=== PATIENT | female | born 1930 | race Caucasian/White ===

== ENCOUNTER 2016-12-06 15:12 | Inpatient (IN) | payer MEDICARE, BC ==
--- NOTE | 2016-12-06 15:28 | ED ---
General Adult HPI - General Chief complaint: Weakness Stated complaint: Weakness Time Seen by Provider: 12/06/16 15:12 Source: EMS, RN notes reviewed Mode of arrival: EMS Limitations: no limitations - History of Present Illness Initial comments: This is an 85-year-old female presents to the emergency department because of generalized weakness. Patient was trying to get out of bed today at about 2:00 in the morning and she slowly fell to the ground she did not injure herself and family help. But however they got her up today and she was extremely weak and was unable to hold herself up. Family wanted her evaluated because below her pannus is a area of redness extremely bad odor and breakdown of skin which they think it is infected. Patient has not had any fever chills patient does state that there is very tender. Patient denies any actual internal abdominal pain. Patient denies nausea vomiting diarrhea. Patient denies shortness of breath. Patient denies chest pain or palpitations. Patient denies headache patient denies numbness weakness. Patient denies any injury in the fall. Patient states she just his overall weak. Per EMS patient was hypotensive initially but is since resolved to a normal blood pressure - Related Data Home Medications Medication Instructions Recorded Confirmed Allopurinol [Zyloprim] 100 mg PO DAILY 12/06/16 12/06/16 Aspirin EC [Ecotrin Low Dose] 81 mg PO HS 12/06/16 12/06/16 Atorvastatin [Lipitor] 5 mg PO HS 12/06/16 12/06/16 Lisinopril [Zestril] 5 mg PO DAILY 12/06/16 12/06/16 Multivitamins, Thera [Multivitamin] 1 tab PO DAILY 12/06/16 12/06/16 Sildenafil [Revatio] 20 mg PO BID 12/06/16 12/06/16 Spironolactone [Aldactone] 37.5 mg PO DAILY 12/06/16 12/06/16 Torsemide [Demadex] 40 mg PO DAILY 12/06/16 12/06/16 fentaNYL 25MCG/HR PATCH [Duragesic 1 patch TRANSDERM Q72H 12/06/16 12/06/16 25MCG/HR] oxyCODONE-APAP 10-325MG [Percocet 1 tab PO TID PRN 12/06/16 12/06/16 10-325 mg] Allergies Allergy/AdvReac Type Severity Reaction Status Date / Time No Known Allergies Allergy Verified 12/06/16 15:22 Review of Systems ROS Statement: Those systems with pertinent positive or pertinent negative responses have been documented in the HPI. ROS Other: All systems not noted in ROS Statement are negative. Past Medical History Past Medical History: Coronary Artery Disease (CAD), Hyperlipidemia, Hypertension History of Any Multi-Drug Resistant Organisms: None Reported Past Surgical History: Unable to Obtain Past Psychological History: No Psychological Hx Reported Smoking Status: Never smoker Past Alcohol Use History: None Reported Past Drug Use History: None Reported General Exam - General Exam Comments Initial Comments: GENERAL: Patient is well-developed and well-nourished. Patient is nontoxic and well- hydrated and is in no acute distress. ENT: Neck is soft and supple. No significant lymphadenopathy is noted. Oropharynx is clear. Moist mucous membranes. Neck has full range of motion without eliciting any pain. EYES: The sclera were anicteric and conjunctiva were pink and moist. Extraocular movements were intact and pupils were equal round and reactive to light. Eyelids were unremarkable. PULMONARY: Unlabored respirations. Good breath sounds bilaterally. No audible rales rhonchi or wheezing was noted. CARDIOVASCULAR: There is a regular rate and rhythm without any murmurs gallops or rubs. ABDOMEN: Soft and nontender with normal bowel sounds. No palpable organomegaly was noted. There is no palpable pulsatile mass. Patient has a large pannus and underneath the pannus is erythematous with some skin breakdown and very malodorous. There appears to be early cellulitis beneath the pannus Skin Skin is clear with no lesions or rashes and otherwise unremarkable. NEUROLOGIC: Patient is alert and oriented x3. Cranial nerves II through XII are grossly intact. Normal speech, volume and content. Symmetrical smile. MUSCULOSKELETAL: No lower extremity swelling or edema. No calf tenderness. LYMPHATICS: No significant lymphadenopathy is noted PSYCHIATRIC: Normal psychiatric evaluation. Limitations: no limitations Course Vital Signs 12/06/16 12/06/16 12/06/16 15:13 15:37 15:50 Temperature 97.1 F L Pulse Rate 73 122 H 120 H Respiratory 20 Rate Blood Pressure 94/50 76/46 75/39 O2 Sat by Pulse 96 97 98 Oximetry 12/06/16 12/06/16 12/06/16 16:41 17:07 17:33 Temperature 96.8 F L 96.8 F L Pulse Rate 120 H 120 H 117 H Respiratory 18 18 Rate Blood Pressure 95/44 159/75 81/46 O2 Sat by Pulse 97 96 Oximetry 12/06/16 18:06 Temperature Pulse Rate 110 H Respiratory Rate Blood Pressure 86/46 O2 Sat by Pulse Oximetry Procedures - Central Line Placement Left Femoral Consent Obtained: verbal consent Time Out Performed: Yes Patient Placed on Monitor/Pulse Ox: Yes Prep: mask, gown, gloves Central Line Prep: Chlorhexidine scrub Local Anesthesia Used: Lidocaine 1% Ultrasound Used for Placement: No Central Line Lumen Inserted: triple Bloods Obtained for Lab: No Central Line Position: good blood return Dressing Applied: Tegaderm Patient Tolerated Procedure: well Complications: none Medical Decision Making - Medical Decision Making EKG shows sinus tachycardia at 122 beats a minute IN interval 258 QRS is 94 QT interval 316 QTC is 450. EKG shows no ST segment elevation. Chest x-ray is a limited exam which is very rotated. Patient's lactic acid was elevated and her blood pressure was low. I started the patient on Levaquin and I also ordered 3 L of fluid for the patient. - Lab Data Result diagrams: 12/06/16 15:30 12/06/16 15:30 Lab Results 12/06/16 12/06/16 12/06/16 Range/Units 15:30 15:30 15:30 WBC 13.7 H (3.8-10.6) k/uL RBC 3.71 L (3.80-5.40) m/uL Hgb 13.5 (11.4-16.0) gm/dL Hct 42.6 (34.0-46.0) % MCV 115.0 H (80.0-100.0) fL MCH 36.3 H (25.0-35.0) pg MCHC 31.5 (31.0-37.0) g/dL RDW 15.8 H (11.5-15.5) % Plt Count 113 L (150-450) k/uL Neutrophils % 88 % Lymphocytes % 6 % Monocytes % 4 % Eosinophils % 0 % Basophils % 0 % Neutrophils # 12.0 H (1.3-7.7) k/uL Lymphocytes # 0.9 L (1.0-4.8) k/uL Monocytes # 0.6 (0-1.0) k/uL Eosinophils # 0.0 (0-0.7) k/uL Basophils # 0.0 (0-0.2) k/uL Manual Slide Review Performed Poikilocytosis (manual Present Macrocytosis Marked PT (9.0-12.0) sec INR (<1.1) APTT (22.0-30.0) sec Sodium 140 (137-145) mmol/L Potassium 5.9 H (3.5-5.1) mmol/L Chloride 106 (98-107) mmol/L Carbon Dioxide 20 L (22-30) mmol/L Anion Gap 14 mmol/L BUN 164 H* (7-17) mg/dL Creatinine 4.10 H (0.52-1.04) mg/dL Est GFR (MDRD) Af Amer 13 (>60 ml/min/1.73 sqM) Est GFR (MDRD) Non-Af 10 (>60 ml/min/1.73 sqM) Glucose 76 (74-99) mg/dL Plasma Lactic Acid Tanvir 2.9 H* (0.7-2.0) mmol/L Calcium 10.7 H (8.4-10.2) mg/dL Total Bilirubin 1.8 H (0.2-1.3) mg/dL AST 37 H (14-36) U/L ALT 42 (9-52) U/L Alkaline Phosphatase 189 H (38-126) U/L Total Protein 5.6 L (6.3-8.2) g/dL Albumin 2.4 L (3.5-5.0) g/dL Cortisol ug/dL Urine Color Urine Appearance (Clear) Urine pH (5.0-8.0) Ur Specific [place] (1.001-1.035) Urine Protein (Negative) Urine Glucose (UA) (Negative) Urine Ketones (Negative) Urine Blood (Negative) Urine Nitrate (Negative) Urine Bilirubin (Negative) Urine Urobilinogen (<2.0) mg/dL Ur Leukocyte Esterase (Negative) Urine WBC (0-5) /hpf Urine WBC Clumps (None) /hpf Urine Bacteria (None) /hpf 12/06/16 12/06/16 12/06/16 Range/Units 15:30 15:30 16:00 WBC (3.8-10.6) k/uL RBC (3.80-5.40) m/uL Hgb (11.4-16.0) gm/dL Hct (34.0-46.0) % MCV (80.0-100.0) fL MCH (25.0-35.0) pg MCHC (31.0-37.0) g/dL RDW (11.5-15.5) % Plt Count (150-450) k/uL Neutrophils % % Lymphocytes % % Monocytes % % Eosinophils % % Basophils % % Neutrophils # (1.3-7.7) k/uL Lymphocytes # (1.0-4.8) k/uL Monocytes # (0-1.0) k/uL Eosinophils # (0-0.7) k/uL Basophils # (0-0.2) k/uL Manual Slide Review Poikilocytosis (manual Macrocytosis PT 13.2 H (9.0-12.0) sec INR 1.3 (<1.1) APTT 24.2 (22.0-30.0) sec Sodium (137-145) mmol/L Potassium (3.5-5.1) mmol/L Chloride (98-107) mmol/L Carbon Dioxide (22-30) mmol/L Anion Gap mmol/L BUN (7-17) mg/dL Creatinine (0.52-1.04) mg/dL Est GFR (MDRD) Af Amer (>60 ml/min/1.73 sqM) Est GFR (MDRD) Non-Af (>60 ml/min/1.73 sqM) Glucose (74-99) mg/dL Plasma Lactic Acid Tanvir (0.7-2.0) mmol/L Calcium (8.4-10.2) mg/dL Total Bilirubin (0.2-1.3) mg/dL AST (14-36) U/L ALT (9-52) U/L Alkaline Phosphatase (38-126) U/L Total Protein (6.3-8.2) g/dL Albumin (3.5-5.0) g/dL Cortisol 46 ug/dL Urine Color Light Red Urine Appearance Turbid H (Clear) Urine pH 5.5 (5.0-8.0) Ur Specific [place] 1.017 (1.001-1.035) Urine Protein 2+ H (Negative) Urine Glucose (UA) Negative (Negative) Urine Ketones Negative (Negative) Urine Blood Small H (Negative) Urine Nitrate Negative (Negative) Urine Bilirubin Negative (Negative) Urine Urobilinogen <2.0 (<2.0) mg/dL Ur Leukocyte Esterase Large H (Negative) Urine WBC >182 H (0-5) /hpf Urine WBC Clumps Many H (None) /hpf Urine Bacteria Many H (None) /hpf Critical Care Time Critical Care Time: Yes Total Critical Care Time: 40 Disposition Clinical Impression: UTI (urinary tract infection), Sepsis, Intertrigo, Acute renal failure, Hyperkalemia Disposition: ADMITTED IP TO THIS [facility] Time of Disposition: 16:53
[2016-12-06] MEDS ORDERED: ONDANSETRON 4 MG/2 ML VIAL IVP STA (15:35)
[2016-12-06] MEDS ORDERED: SODIUM CHLORIDE 0.9% 1,000 ML IV ONE (15:38)
[2016-12-06 15:40] LABS: Basophils % (A) 0 %; CH 36.2; CHCM 31.7; Eosinophils % (A) 0 %; HCT 42.6 % (34.0-46.0); HDW 2.37; HGB 13.5 gm/dL (11.4-16.0); Luc # (Auto) 0.24; Luc % (Auto) 2; Lymphocytes # (A) 0.9 k/uL (1.0-4.8); Lymphocytes % (A) 6 %; MCH 36.3 pg (25.0-35.0); MCHC 31.5 g/dL (31.0-37.0); Macrocytosis Marked; Mean Platelet Volume 9.1; Monocytes # (A) 0.6 k/uL (0-1.0); Monocytes % (A) 4 %; Neutrophils % (A) 88 %; RBC 3.71 m/uL (3.80-5.40); RDW 15.8 % (11.5-15.5); WBC 13.7 k/uL (3.8-10.6); WBC (Perox) 13.96
[2016-12-06] MEDS: HYDROmorphone 1 MG/ML 1 ML SYRINGE IVP STA (15:43)
[2016-12-06 15:46] LABS: Calcium 10.7 mg/dL (8.4-10.2); Potassium 5.9 mmol/L (3.5-5.1); Total Bilirubin 1.8 mg/dL (0.2-1.3); Total Protein 5.6 g/dL (6.3-8.2)
[2016-12-06 15:54] LABS: Manual Review Performed
[2016-12-06] MEDS ORDERED: LEVOFLOXACIN 750MG-D5W PMX 750 MG in DEXTROSE/WATER 1 150ML.BAG IVPB STA (15:57)
[2016-12-06] MEDS ORDERED: LEVOFLOXACIN 750MG-D5W PMX 750 MG in DEXTROSE/WATER 1 150ML.BAG IVPB SCH (16:00)
[2016-12-06 16:26] LABS: Appearance,Urine Turbid (Clear); Bacteria,Urine Many /hpf; Bilirubin,Urine Negative (Negative); Glucose,Urine (UA) Negative (Negative); Ketones,Urine Negative (Negative); Leukocyte Esterase,Urine Large (Negative); Nitrite,Urine Negative (Negative); PH, Urine 5.5 (5.0-8.0); Particle Count 129329; Protein,Urine 2+ (Negative); UA Billing (MACRO vs. MICRO) MICRO; Urobilinogen,Urine <2.0 mg/dL (<2.0); WBC,Urine >182 /hpf (0-5)
[2016-12-06] MEDS ORDERED: SODIUM CHLORIDE 0.9% 2,000 ML IV ONE (16:33)
--- NOTE | 2016-12-06 16:44 | XR ---
EXAMINATION TYPE: XR chest 2V DATE OF EXAM: 12/06/2016 4:37 PM COMPARISON: 01/19/2012 HISTORY: 85-year-old female difficulty breathing TECHNIQUE: AP and lateral views FINDINGS: Limited portable view with marked rightward rotation and kyphotic positioning. There appears to be ca rdiomegaly and diffuse interstitial prominence. No significant pleural effusion seen. IMPRESSION: Markedly limited, rotated exam. There is cardiomegaly. Correlate for possible mild CHF.
[2016-12-06 16:52] LABS: Specific Gravity,Urine 1.017 (1.001-1.035)
[2016-12-06] MEDS ORDERED: SODIUM POLYSTYRENE SULFONATE 15 GM/60 ML BOTTLE PO STA (17:05)
[2016-12-06] MEDS ORDERED: PIPERACILLIN-TAZOBACTAM 3.375 GM in DEXTROSE/WATER 1 50ML.BAG IVPB STA (17:37)
[2016-12-06 17:39] LABS: INR 1.3 (<1.1); Partial Thromboplastin Time 24.2 sec (22.0-30.0); Prothrombin Time 13.2 sec (9.0-12.0)
[2016-12-06] MEDS: NOREPINEPHRINE 16 MG in SODIUM CHLORIDE 0.9% 250 ML IV SCH (18:36)
[2016-12-06 18:59] LABS: Glucose,Whole Blood 73 mg/dL (75-99)
[2016-12-06] MEDS: SODIUM CHLORIDE 0.9% 1,000 ML IV SCH (22:17)
[2016-12-06 23:04] LABS: Creatine Kinase MB 7.4 ng/mL (0.0-2.4); Troponin I 0.225 ng/mL (0.000-0.034)
[2016-12-07] MEDS ORDERED: PIPERACILLIN-TAZOBACTAM 3.375 GM in DEXTROSE/WATER 1 50ML.BAG IVPB SCH (01:00)
[2016-12-07] MEDS ORDERED: HEPARIN SODIUM,PORCINE/D5W PMX 25,000 UNIT in DEXTROSE/WATER 1 500ML.BAG IV SCH (02:00)
[2016-12-07] MEDS ORDERED: HEPARIN SODIUM,PORCINE 5,000 UNIT/ML 1 ML VIAL IV PRN (02:00)
[2016-12-07] MEDS ORDERED: HYDROCORTISONE SUCCINATE 100 MG/2 ML VIAL IV STA ×2 (02:03→10:39)
[2016-12-07] MEDS: PIPERACILLIN-TAZOBACTAM 3.375 GM in DEXTROSE/WATER 1 50ML.BAG IVPB SCH ×2 (02:16→11:48)
[2016-12-07 02:23] LABS: Basophils % (A) 0 %; CHCM 31.2; Eosinophils % (A) 0 %; HDW 2.37; HGB 12.8 gm/dL (11.4-16.0); Hypochromasia Slight; Luc # (Auto) 0.29; Luc % (Auto) 2; Lymphocytes # (A) 0.7 k/uL (1.0-4.8); Lymphocytes % (A) 4 %; MCH 36.1 pg (25.0-35.0); MCHC 31.1 g/dL (31.0-37.0); MCV 116.1 fL (80.0-100.0); Macrocytosis Marked; Mean Platelet Volume 9.1; Monocytes % (A) 6 %; Neutrophils # (A) 15.9 k/uL (1.3-7.7); Neutrophils % (A) 89 %; RBC 3.53 m/uL (3.80-5.40); RDW 15.8 % (11.5-15.5); WBC 17.9 k/uL (3.8-10.6); WBC (Perox) 18.06
[2016-12-07 02:29] LABS: ABG HCO3 15 mmol/L (21-25); ABG Oxygen Saturation 98.1 % (94-97); ABG PCO2 33 mmHg (35-45); ABG PH 7.29 (7.35-7.45); ABG PO2 116 mmHg (83-108); ABG TCO2 16 mmol/L (19-24)
[2016-12-07 02:31] LABS: Calcium 9.8 mg/dL (8.4-10.2); INR 1.4 (<1.1); Partial Thromboplastin Time 26.6 sec (22.0-30.0); Polychromasia Present; Potassium 5.4 mmol/L (3.5-5.1); Prothrombin Time 13.5 sec (9.0-12.0); Total Bilirubin 1.6 mg/dL (0.2-1.3); Total Protein 5.1 g/dL (6.3-8.2)
[2016-12-07 02:32] LABS: Manual Review Performed
[2016-12-07] MEDS: SODIUM CHLORIDE 0.9% 99 ML with VASOPRESSIN 20 UNIT IV SCH ×4 (02:51→10:15)
[2016-12-07] MEDS ORDERED: NALOXONE 0.4 MG/ML 1 ML VIAL IV PRN (03:17)
[2016-12-07 05:33] LABS: Basophils % (A) 0 %; CH 35.8; Eosinophils % (A) 0 %; HCT 39.2 % (34.0-46.0); HDW 2.48; HGB 12.2 gm/dL (11.4-16.0); Hypochromasia Slight; Luc # (Auto) 0.11; Luc % (Auto) 1; Lymphocytes # (A) 0.4 k/uL (1.0-4.8); Lymphocytes % (A) 3 %; MCH 36.2 pg (25.0-35.0); MCHC 31.1 g/dL (31.0-37.0); MCV 116.3 fL (80.0-100.0); Macrocytosis Marked; Mean Platelet Volume 9.2; Monocytes # (A) 0.6 k/uL (0-1.0); Monocytes % (A) 4 %; Neutrophils # (A) 14.4 k/uL (1.3-7.7); Neutrophils % (A) 93 %; RBC 3.37 m/uL (3.80-5.40); RDW 15.9 % (11.5-15.5); WBC 15.6 k/uL (3.8-10.6); WBC (Perox) 15.29
[2016-12-07 05:49] LABS: Calcium 9.6 mg/dL (8.4-10.2); Magnesium 1.4 mg/dL (1.6-2.3); Phosphorous 6.2 mg/dL (2.5-4.5); Potassium 5.5 mmol/L (3.5-5.1)
[2016-12-07 06:12] LABS: Creatine Kinase MB 7.6 ng/mL (0.0-2.4)
[2016-12-07 06:13] LABS: Troponin I 0.475 ng/mL (0.000-0.034)
[2016-12-07] MEDS ORDERED: Magnesium Replacement Protocol 1 EACH MISC MISCELLANE PRN (06:15)
[2016-12-07] MEDS: HYDROmorphone 1 MG/ML 1 ML SYRINGE IVP STA (06:16)
[2016-12-07] MEDS: MAGNESIUM SULFATE-D5W PMX 1 GM in DEXTROSE/WATER 1 100ML.BAG IVPB SCH ×3 (06:56→10:14)
[2016-12-07] MEDS: NOREPINEPHRINE 16 MG in SODIUM CHLORIDE 0.9% 250 ML IV SCH ×3 (08:14→18:59)
[2016-12-07] MEDS: SODIUM CHLORIDE 0.9% 1,000 ML IV SCH (08:18)
--- NOTE | 2016-12-07 08:20 | XR ---
EXAMINATION TYPE: XR chest 1V DATE OF EXAM: 12/07/2016 6:48 AM COMPARISON: 12/06/2016 HISTORY: Shortness of breath TECHNIQUE: Single frontal view of the chest is obtained. FINDINGS: Heart is enlarged there is a diffuse interstitial pattern. Aorta is prominent in size. Dif fuse osteopenia and arthropathy of the shoulders noted. No obvious consolidation. IMPRESSION: 1. Correlate for mild venous congestion 2. Cardiomegaly 3. Possible aortic aneurysm
[2016-12-07] MEDS ORDERED: ALLOPURINOL 100 MG TAB PO SCH (09:00)
[2016-12-07] MEDS ORDERED: PANTOPRAZOLE 40 MG/10 ML VIAL IV SCH (09:00)
--- NOTE | 2016-12-07 10:32 | ECHOF ---
Referral Reason:CHF MEASUREMENTS -------- HEIGHT: 154.9 cm WEIGHT: 102.1 kg BP: 76/34 RVIDd: 4.7 cm (< 3.3) IVSd: 1.3 cm (0.6 - 1.1) LVIDd: 3.2 cm (3.9 - 5.3) LVPWd: 1.5 cm (0.6 - 1.1) IVSs: 2.3 cm LVIDs: 1.6 cm LVPWs: 1.7 cm Ao Diam: 3.0 cm (2.0 - 3.7) AV Cusp: 2.2 cm (1.5 - 2.6) LA Diam: 3.7 cm (2.7 - 3.8) MV E Augie: 1.05 m/s MV DecT: 70 ms MV A Augie: 0.74 m/s MV E/A Ratio: 1.42 RAP: 5.00 mmHg RVSP: 98.32 mmHg FINDINGS -------- Resting tachycardia (HR>100bpm). This was a technically adequate study. There is moderate concentric left ventricular hypertrophy. Overall left ventricular systolic function is normal with, an EF between 55 - 60 %. There is paradoxical/dysynergic septal motion consistent with right ventricular volume overload and/or elevated right ventricular end-diastolic pressure. The right ventricle is severely enlarged. The left atrium is normal in size. The right atrium is normal in size. Aortic valve is trileaflet and is mildly thickened. The mitral valve leaflets are mildly thickened. Mild mitral annular calcification present. Mild mitral regurgitation is present. Moderate tricuspid regurgitation present. There is severe pulmonary hypertension. The right ventricular systolic pressure, as measured by Doppler, is 98.32mmHg. Pulmonic valve appears structurally normal. The aortic root size is normal. The pericardium is normal. CONCLUSIONS -------- 1. Resting tachycardia (HR>100bpm). 2. The mitral valve leaflets are mildly thickened. 3. Mild mitral annular calcification present. 4. Mild mitral regurgitation is present. 5. Moderate tricuspid regurgitation present. 6. There is severe pulmonary hypertension. 7. The right ventricular systolic pressure, as measured by Doppler, is 98.32mmHg. 8. Pulmonic valve appears structurally normal. 9. The aortic root size is normal. 10. The pericardium is normal. 11. This was a technically adequate study. 12. There is moderate concentric left ventricular hypertrophy. 13. Overall left ventricular systolic function is normal with, an EF between 55 - 60 %. 14. There is paradoxical/dysynergic septal motion consistent with right ventricular volume overload and/or elevated right ventricular end-diastolic pressure. 15. The right ventricle is severely enlarged. 16. The left atrium is normal in size. 17. The right atrium is normal in size. 18. Aortic valve is trileaflet and is mildly thickened. [employer]ACHINE ADJUSTER: Constance Mendez RDCS
[2016-12-07] MEDS ORDERED: IV VANCOMYCIN PER PHARMACY 1 EACH MISC MISCELLANE PRN (10:42)
[2016-12-07] MEDS ORDERED: VANCOMYCIN 1,750 MG in SODIUM CHLORIDE 0.9% 250 ML IVPB ONE (11:30)
[2016-12-07] MEDS: HYDROmorphone 1 MG/ML 1 ML SYRINGE IVP PRN ×3 (11:31→20:30)
--- NOTE | 2016-12-07 11:52 | CONS ---
DATE OF CONSULTATION: 12/07/2016 REASON FOR CONSULT: Renal failure. HISTORY OF PRESENT ILLNESS: Patient is an 85-year-old white female who has a history of hypertension, severe pulmonary hypertension, and coronary artery disease, being followed by Dr. Healy, who is her mechanical adjuster out of town. She was admitted to the hospital with complaints of weakness, not feeling well, and inability to get out of bed. Patient denied any fever. No nausea or vomiting. She denies any prior history of kidney diseases. She has been hypotensive since admission. She was maintained on JENNIFER inhibitors prior to admission. There is no history of use of nonsteroidal anti-inflammatory agents. Currently patient is maintained on Levophed at about 40 mcg, she is also on IV fluids. She has had 4 L of fluid thus far. Urine output was initially low and it has picked up now to about 50 to 40 mL/h. Serum creatinine 3.2 mg/dL. On initial admission it was at 4.1 mg/dL. Source of sepsis is possibly urine versus cellulitis on the abdominal wall. Patient is maintained on Zosyn and Levaquin. ID consult is currently pending. PAST MEDICAL HISTORY: Hypertension, hyperlipidemia, coronary artery disease, severe pulmonary hypertension. PAST SURGICAL HISTORY: Not noted. Medications at home prior to admission included Zyloprim, Lipitor, aspirin, Zestril, multivitamins, Aldactone, Revatio, Demadex, Percocet. ALLERGIES: None. REVIEW OF SYSTEMS: As per HPI. Other systems negative. On examination, patient is comfortable. She is complaining of pain all over. She is not in any acute distress. Blood pressure is 100/51, heart rate 109 per minute. She is afebrile. Examination of the heart, S1 and S2. Examination of lungs, bilateral breath sounds are heard. Decreased breath sounds in bases. Abdomen is soft. There is tenderness noted, particularly where there is cellulitis in the lower abdomen. Examination of lower extremities shows chronic skin changes, edema 1+ bilaterally. [employer]ER exam is grossly intact. Labs show sodium of 143, potassium 5.5, chloride 116, CO2 is 14. BUN 133, serum creatinine 3.25, hemoglobin at 12.2 g/dL, UA shows WBCs more than 182, leukocyte esterase large, 2+ protein, small blood. ASSESSMENT: 1. Acute kidney injury, acute tubular necrosis, secondary to sepsis, hypotension, hypoperfusion, currently nonoliguric with some improvement in renal function compared to yesterday. 2. Non-gap metabolic acidosis secondary to renal failure. Will start IV bicarb, since the acidosis is worse. This will also help with the hyperkalemia. 3. Sepsis secondary to urinary tract infection versus cellulitis in the abdominal wall. 4. History of severe pulmonary hypertension. 5. History of coronary artery disease. PLAN: Continue aggressive IV fluids. Start IV bicarb. Continue to avoid nephrotoxic agents. Family is considering transfer to [facility] where her primary mechanical adjuster works out of.
[2016-12-07] MEDS ORDERED: DEXTROSE 5% IN WATER 1,000 ML with SODIUM BICARB (1 MEQ/ML) 150 ML IV SCH (12:00)
--- NOTE | 2016-12-07 13:46 | P.HPIM ---
History of Present Illness H&P Date: 12/07/16 Chief Complaint: Generalized weakness This is a 85-year-old female with past medical history noted below significant for severe pulmonary hypertension/cor pulmonale who presented to the emergency room brought in by her family with a chief complaint of generalized weakness and not feeling well. Apparently patient has been doing fairly well up until the last few days when her family members noted worsening redness in between her abdominal folds. Patient is obese that she is usually functional. She is able to get up and take care of her activities of daily living. Yesterday, patient was noted to be more lethargic and tired. She was brought into the emergency room and was noted to be severely septic with hypotension. Patient was treated aggressively with IV fluid hydration, vasopressors, and broad spectrum antibiotic. She was admitted to the intensive care unit. She is currently on 2 different pressors. She was seen and evaluated by the cadmium plater earlier. Patient is awake and alert. She is complaining of some abdominal pain. She denies shortness of breath. Review of Systems Review of system: 14 points review of systems were obtained and were negative except to what were mentioned in the HPI. Past Medical History Past Medical History: Coronary Artery Disease (CAD), Hyperlipidemia, Hypertension History of Any Multi-Drug Resistant Organisms: None Reported Past Surgical History: Unable to Obtain Past Psychological History: No Psychological Hx Reported Smoking Status: Never smoker Past Alcohol Use History: None Reported Past Drug Use History: None Reported Medications and Allergies Home Medications Medication Instructions Recorded Confirmed Type Allopurinol [Zyloprim] 100 mg PO DAILY 12/06/16 12/06/16 History Aspirin EC [Ecotrin Low Dose] 81 mg PO HS 12/06/16 12/06/16 History Atorvastatin [Lipitor] 5 mg PO HS 12/06/16 12/06/16 History Lisinopril [Zestril] 5 mg PO DAILY 12/06/16 12/06/16 History Multivitamins, Thera [Multivitamin] 1 tab PO DAILY 12/06/16 12/06/16 History Sildenafil [Revatio] 20 mg PO BID 12/06/16 12/06/16 History Spironolactone [Aldactone] 37.5 mg PO DAILY 12/06/16 12/06/16 History Torsemide [Demadex] 40 mg PO DAILY 12/06/16 12/06/16 History fentaNYL 25MCG/HR PATCH [Duragesic 1 patch TRANSDERM Q72H 12/06/16 12/06/16 History 25MCG/HR] oxyCODONE-APAP 10-325MG [Percocet 1 tab PO TID PRN 12/06/16 12/06/16 History 10-325 mg] Allergies Allergy/AdvReac Type Severity Reaction Status Date / Time No Known Allergies Allergy Verified 12/06/16 15:22 Physical Exam Vitals: Vital Signs Temp Pulse Resp BP Pulse Ox 12/07/16 13:00 102 H 15 98 12/07/16 12:00 98.1 F 91 16 98 12/07/16 11:00 95 24 97 12/07/16 10:00 104 H 31 H 100/48 97 12/07/16 09:00 109 H 15 100/51 96 12/07/16 08:00 97.5 F L 123 H 24 94/51 98 12/07/16 07:00 118 H 22 101/43 98 12/07/16 06:00 112 H 22 76/33 94 L 12/07/16 05:00 109 H 14 86/44 96 12/07/16 04:00 97.4 F L 126 H 17 97 12/07/16 03:00 125 H 18 99 12/07/16 02:00 139 H 18 98 12/07/16 01:00 136 H 12 98 12/07/16 00:00 97.3 F L 137 H 18 94/48 97 12/06/16 23:29 124 H 17 98 12/06/16 23:00 131 H 19 81/48 97 12/06/16 22:00 129 H 15 97/46 99 12/06/16 21:00 120 H 17 82/38 99 12/06/16 20:00 97.1 F L 120 H 18 67/52 97 12/06/16 19:20 127 H 14 73/51 98 12/06/16 19:10 97.7 F 120 H 14 84/64 99 12/06/16 18:23 134 H 85/40 12/06/16 18:06 110 H 86/46 12/06/16 17:33 96.8 F L 117 H 18 81/46 96 12/06/16 17:07 96.8 F L 120 H 18 159/75 97 Intake and Output 12/06/16 12/07/16 12/07/16 22:59 06:59 14:59 Intake Total 719.516 7386.533 1233.477 Output Total 325 620 445 Balance 17.113 493.533 788.477 Intake: IV 300 800 360 Sodium Chloride 0.9% 1, 300 800 360 000 ml @ 100 mls/hr IV . Q10H [facility] Rx#:[id number] Intake, IV Titration 42.113 313.533 873.477 Amount Heparin Sodium,Porcine/ 89.646 170.802 D5w Pmx 25,000 unit In Dextrose/Water 1 500ml. bag @ 9.8 UNITS/KG/HR 20. 07 mls/hr IV .Q24H [facility] Rx #:[id number] Magnesium Sulfate-D5w Pmx 200 1 gm In Dextrose/Water 1 100ml.bag @ 100 mls/hr IVPB Q1H [facility] Rx#: [id number] Norepinephrine 16 mg In 42.113 223.887 252.675 Sodium Chloride 0.9% 250 ml @ Titrate IV .Q0M [facility] Rx#:[id number] Vancomycin 1,750 mg In 250 Sodium Chloride 0.9% 250 ml @ 125 mls/hr IVPB ONCE ONE Rx#:[id number] Output: Urine 325 620 445 Other: Voiding Method Indwelling Catheter Indwelling Catheter Indwelling Catheter Weight 102.4 kg 104 kg ABP, PAP, CO, CI - Last 8 Hours Arterial Blood Pressure 83/38 Arterial Blood Pressure 79/37 Arterial Blood Pressure 75/33 Arterial Blood Pressure 76/38 Arterial Blood Pressure 75/39 Arterial Blood Pressure 76/39 Arterial Blood Pressure 79/37 Arterial Blood Pressure 74/33 General: The patient is awake and alert Eye: extra-ocular movements are intact; there is normal conjunctiva bilaterally. . Neck: The neck is supple, there is no tenderness or JVD. Cardiovascular: Normal S1-S2, no S3-S4, no murmurs. Respiratory: Lungs clear to anterior chest auscultation bilaterally with no wheezes rhonchi or rales. Gastrointestinal: Abdomen is soft, there is mild tenderness to palpation. There is significant erythema in between abdominal falls mostly in the lower abdomen and suprapubic area Musculoskeletal: There is +1-2 pedal edema. Neurological: Speech is normal. Results CBC & Chem 7: 12/07/16 05:30 12/07/16 05:30 Labs: Abnormal Lab Results - Last 24 Hours (Table) 12/06/16 12/06/16 12/07/16 Range/Units 18:57 22:20 02:10 WBC 17.9 H (3.8-10.6) k/uL RBC 3.53 L (3.80-5.40) m/uL MCV 116.1 H (80.0-100.0) fL MCH 36.1 H (25.0-35.0) pg RDW 15.8 H (11.5-15.5) % Plt Count 130 L (150-450) k/uL Neutrophils # 15.9 H (1.3-7.7) k/uL Lymphocytes # 0.7 L (1.0-4.8) k/uL PT (9.0-12.0) sec APTT (22.0-30.0) sec ABG pH (7.35-7.45) ABG pCO2 (35-45) mmHg ABG pO2 (83-108) mmHg ABG HCO3 (21-25) mmol/L ABG Total CO2 (19-24) mmol/L ABG O2 Saturation (94-97) % Potassium (3.5-5.1) mmol/L Chloride (98-107) mmol/L Carbon Dioxide (22-30) mmol/L BUN (7-17) mg/dL Creatinine (0.52-1.04) mg/dL Glucose (74-99) mg/dL POC Glucose (mg/dL) 73 L (75-99) mg/dL Phosphorus (2.5-4.5) mg/dL Magnesium (1.6-2.3) mg/dL Total Bilirubin (0.2-1.3) mg/dL AST (14-36) U/L Alkaline Phosphatase (38-126) U/L CK-MB (CK-2) 7.4 H* (0.0-2.4) ng/mL Troponin I 0.225 H* (0.000-0.034) ng/mL Total Protein (6.3-8.2) g/dL Albumin (3.5-5.0) g/dL 12/07/16 12/07/16 12/07/16 Range/Units 02:10 02:10 02:17 WBC (3.8-10.6) k/uL RBC (3.80-5.40) m/uL MCV (80.0-100.0) fL MCH (25.0-35.0) pg RDW (11.5-15.5) % Plt Count (150-450) k/uL Neutrophils # (1.3-7.7) k/uL Lymphocytes # (1.0-4.8) k/uL PT 13.5 H (9.0-12.0) sec APTT (22.0-30.0) sec ABG pH 7.29 L (7.35-7.45) ABG pCO2 33 L (35-45) mmHg ABG pO2 116 H (83-108) mmHg ABG HCO3 15 L (21-25) mmol/L ABG Total CO2 16 L (19-24) mmol/L ABG O2 Saturation 98.1 H (94-97) % Potassium 5.4 H (3.5-5.1) mmol/L Chloride 114 H (98-107) mmol/L Carbon Dioxide 15 L (22-30) mmol/L BUN 136 H* (7-17) mg/dL Creatinine 3.20 H (0.52-1.04) mg/dL Glucose 69 L (74-99) mg/dL POC Glucose (mg/dL) (75-99) mg/dL Phosphorus (2.5-4.5) mg/dL Magnesium (1.6-2.3) mg/dL Total Bilirubin 1.6 H (0.2-1.3) mg/dL AST 37 H (14-36) U/L Alkaline Phosphatase 176 H (38-126) U/L CK-MB (CK-2) (0.0-2.4) ng/mL Troponin I (0.000-0.034) ng/mL Total Protein 5.1 L (6.3-8.2) g/dL Albumin 2.2 L (3.5-5.0) g/dL 12/07/16 12/07/16 12/07/16 Range/Units 05:30 05:30 05:30 WBC 15.6 H (3.8-10.6) k/uL RBC 3.37 L (3.80-5.40) m/uL MCV 116.3 H (80.0-100.0) fL MCH 36.2 H (25.0-35.0) pg RDW 15.9 H (11.5-15.5) % Plt Count 135 L (150-450) k/uL Neutrophils # 14.4 H (1.3-7.7) k/uL Lymphocytes # 0.4 L (1.0-4.8) k/uL PT (9.0-12.0) sec APTT (22.0-30.0) sec ABG pH (7.35-7.45) ABG pCO2 (35-45) mmHg ABG pO2 (83-108) mmHg ABG HCO3 (21-25) mmol/L ABG Total CO2 (19-24) mmol/L ABG O2 Saturation (94-97) % Potassium 5.5 H (3.5-5.1) mmol/L Chloride 116 H (98-107) mmol/L Carbon Dioxide 14 L (22-30) mmol/L BUN 133 H* (7-17) mg/dL Creatinine 3.25 H (0.52-1.04) mg/dL Glucose (74-99) mg/dL POC Glucose (mg/dL) (75-99) mg/dL Phosphorus 6.2 H (2.5-4.5) mg/dL Magnesium 1.4 L (1.6-2.3) mg/dL Total Bilirubin (0.2-1.3) mg/dL AST (14-36) U/L Alkaline Phosphatase (38-126) U/L CK-MB (CK-2) 7.6 H* (0.0-2.4) ng/mL Troponin I 0.475 H* (0.000-0.034) ng/mL Total Protein (6.3-8.2) g/dL Albumin (3.5-5.0) g/dL 12/07/16 Range/Units 12:03 WBC (3.8-10.6) k/uL RBC (3.80-5.40) m/uL MCV (80.0-100.0) fL MCH (25.0-35.0) pg RDW (11.5-15.5) % Plt Count (150-450) k/uL Neutrophils # (1.3-7.7) k/uL Lymphocytes # (1.0-4.8) k/uL PT (9.0-12.0) sec APTT 129.8 H* (22.0-30.0) sec ABG pH (7.35-7.45) ABG pCO2 (35-45) mmHg ABG pO2 (83-108) mmHg ABG HCO3 (21-25) mmol/L ABG Total CO2 (19-24) mmol/L ABG O2 Saturation (94-97) % Potassium (3.5-5.1) mmol/L Chloride (98-107) mmol/L Carbon Dioxide (22-30) mmol/L BUN (7-17) mg/dL Creatinine (0.52-1.04) mg/dL Glucose (74-99) mg/dL POC Glucose (mg/dL) (75-99) mg/dL Phosphorus (2.5-4.5) mg/dL Magnesium (1.6-2.3) mg/dL Total Bilirubin (0.2-1.3) mg/dL AST (14-36) U/L Alkaline Phosphatase (38-126) U/L CK-MB (CK-2) (0.0-2.4) ng/mL Troponin I (0.000-0.034) ng/mL Total Protein (6.3-8.2) g/dL Albumin (3.5-5.0) g/dL Thrombosis Risk Factor Assmnt - Choose All That Apply Each Factor Represents 1 point: Swollen legs (current) Each Risk Factor Represents 2 Points: Central venous access, Patient confined to bed Each Risk Factor Represents 3 Points: Age 75 years or older Other congenital or acquired thrombophilia - If yes, enter type in comment: No Thrombosis Risk Factor Assessment Total Risk Factor Score: 8 Thrombosis Risk Factor Assessment Level: High Risk Assessment and Plan Plan: 1. Severe sepsis and septic shock 2. Urinary tract infection with urosepsis 3. Abdominal folds dermatophytes with superimposed bacterial cellulitis 4. Severe pulmonary hypertension/cor pulmonale: Echocardiogram done showing preserved ejection fraction of 55-60% 5. Underlying essential hypertension 6. Chronic arthritis pain/degenerative joint disease 7. Troponin elevation: With no acute ischemic changes on 12-lead EKG. Most likely nonischemic troponin leak secondary to sepsis. Cardiology will be consulte Patient received IV fluid resuscitation with approximately 4 L of fluids. She is getting normal saline at the 100 per hour right now. She is on 2 different vasopressors including norepinephrine and vasopressin. Her mean arterial pressure at this time is around 50. She is getting broad-spectrum antibiotic. She was seen and evaluated by the cadmium plater. Infectious disease consulted as well as cardiology. Today, I discussed goals of care with the patient and her family at bedside including her and daughter. Patient would like to be a full code for the time being. I also spoke to her c software engineer at [facility], Dr. Pa, who informed me that patient has long-standing severe pulmonary hypertension and underwent a left heart catheterization in the recent past showing patent coronary artery. She is maintained on sildenafil as an outpatient. Her pulmonary hypertension was irreversible during last heart catheterization.
--- NOTE | 2016-12-07 14:01 | CONS ---
DATE OF CONSULTATION: CHIEF COMPLAINT: Elevated troponin. This is an 85-year-old lady with history of hypertension, chronic severe pulmonary hypertension, coronary artery disease, and chronic renal insufficiency who presented to hospital primarily with increasing weakness, not feeling well, and inability to get out of bed. On her presentation, she was found to be in renal failure with severe and profound hypotension. Cardiology has been consulted because of elevated troponins. At the time of my evaluation, she is alert, but is hypotensive. She is on IV Levophed and IV fluids. Troponins are mildly elevated, probably related to the renal failure and I do not believe patient had a myocardial infarction. An echocardiogram showed normal LV function with severe pulmonary hypertension. EKG shows sinus tachycardia with nonspecific ST-T wave changes. Past medical history is significant for hypertension, dyslipidemia, coronary artery disease, and pulmonary hypertension. Past surgical history is unremarkable. MEDICATIONS: She is on Lipitor, Zyloprim, aspirin, Zestril, Aldactone, Demadex, Percocet, Revatio. ALLERGIES: There are no known drug allergies. Family history is negative for premature coronary artery disease. Social history is negative for smoking, EtOH use or drug abuse. REVIEW OF SYSTEMS: HEENT is unremarkable. CARDIAC: As described above. RESPIRATORY: As described above. GI: Negative. GENITOURINARY: Significant for renal failure and possible UTI. PSYCHOSOCIAL: Negative. ENDOCRINE: Negative. DERMATOLOGIC: Significant for skin rash. CONSTITUTIONAL: Significant for not feeling well. Rest of the system review is not relevant. On exam, heart rate is around 100 beats per minute, blood pressure is 83/38, respiratory rate is 16. There is no jugular venous distention. Carotid upstroke is diminished. Chest exam reveals diminished air entry bilaterally. Heart exam reveals first and second heart sounds. No gallop. No murmur. Abdomen is soft, nontender. Exam of extremities reveals trace edema. Peripheral pulses are felt. Labs show a hemoglobin of 12, platelet count is 135. Potassium is 5.5. BUN is 133. Creatinine is 3.25. Troponins are elevated at 0.2 and 0.4. BNP is elevated at 10,200. EKG shows sinus rhythm. ASSESSMENT: 1. Severe hypotension probably secondary to sepsis. 2. Elevated troponin probably related to renal failure. 3. Acute onset renal failure. 4. History of severe pulmonary hypertension. PLAN: I agree with the current supportive care, reviewed echocardiogram, labs, EKG's and the rest of the work-up done on her. Her prognosis is guarded. I agree with the current supportive care. I am going to stop the IV heparin as I do not believe she had an acute myocardial infarction.
--- NOTE | 2016-12-07 16:01 | P.CNPUL ---
History of Present Illness Consult date: 12/07/16 Requesting physician: Fabian Epps Reason for consult: other (Acute sepsis) Chief complaint: Generalized weakness History of present illness: This is a 85-year-old female with past medical history noted below significant for severe pulmonary hypertension/cor pulmonale who presented to the emergency room brought in by her family with a chief complaint of generalized weakness and not feeling well. Apparently patient has been doing fairly well up until the last few days when her family members noted worsening redness in between her abdominal folds. Patient is obese that she is usually functional. She is able to get up and take care of her activities of daily living. Yesterday, patient was noted to be more lethargic and tired. She was brought into the emergency room and was noted to be severely septic with hypotension. Patient was treated aggressively with IV fluid hydration, vasopressors, and broad spectrum antibiotic. She was admitted to the intensive care unit. She is currently levo fed and vasopressin, with marginal blood pressure although she is maximized on both. Her labs showed evidence of leukocytosis with WBC count of 17.9, her hemoglobin was 12.8. ABG showed a pO2 of 116 pCO2 of 53 pH of 7.29. Electrolytes showed slightly elevated potassium of 5.5, non-anion gap hyperchloremic metabolic acidosis. Patient was also noted to have elevated BUN of 133 and creatinine of 3.25. Cardiac panel showed slightly elevated troponin 0.22 initially and now at 0.475. ProBNP was elevated at 10,200 and her chest x- ray is suggestive of some fluid overload. But is a poor quality chest x-ray patient seems to be rotated. Serum cortisol level on admission was 33. Considering the presentation of hypotension, elevated lactic acid, leukocytosis , patient was found to be septic, and she was empirically placed on antibiotics in the form of Levaquin, Zosyn and vancomycin. She is also on the protocol for sepsis. 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 Family also expressed wishes to DO NOT RESUSCITATE CODE STATUS. Review of Systems 14 point review of systems were obtained, please refer to pertinent positives and negatives in HPI. Past Medical History Past Medical History: Coronary Artery Disease (CAD), Hyperlipidemia, Hypertension History of Any Multi-Drug Resistant Organisms: None Reported Past Surgical History: Unable to Obtain Past Psychological History: No Psychological Hx Reported Smoking Status: Never smoker Past Alcohol Use History: None Reported Past Drug Use History: None Reported Medications and Allergies Home Medications Medication Instructions Recorded Confirmed Type Allopurinol [Zyloprim] 100 mg PO DAILY 12/06/16 12/06/16 History Aspirin EC [Ecotrin Low Dose] 81 mg PO HS 12/06/16 12/06/16 History Atorvastatin [Lipitor] 5 mg PO HS 12/06/16 12/06/16 History Lisinopril [Zestril] 5 mg PO DAILY 12/06/16 12/06/16 History Multivitamins, Thera [Multivitamin] 1 tab PO DAILY 12/06/16 12/06/16 History Sildenafil [Revatio] 20 mg PO BID 12/06/16 12/06/16 History Spironolactone [Aldactone] 37.5 mg PO DAILY 12/06/16 12/06/16 History Torsemide [Demadex] 40 mg PO DAILY 12/06/16 12/06/16 History fentaNYL 25MCG/HR PATCH [Duragesic 1 patch TRANSDERM Q72H 12/06/16 12/06/16 History 25MCG/HR] oxyCODONE-APAP 10-325MG [Percocet 1 tab PO TID PRN 12/06/16 12/06/16 History 10-325 mg] Allergies Allergy/AdvReac Type Severity Reaction Status Date / Time No Known Allergies Allergy Verified 12/06/16 15:22 Physical Exam Vitals: Vital Signs Temp Pulse Resp BP Pulse Ox 12/07/16 15:00 94 22 98 12/07/16 14:00 90 12 97 12/07/16 13:00 102 H 15 98 12/07/16 12:00 98.1 F 91 22 98 12/07/16 11:00 95 24 97 12/07/16 10:00 104 H 31 H 100/48 97 12/07/16 09:00 109 H 15 100/51 96 12/07/16 08:00 97.5 F L 123 H 24 94/51 98 12/07/16 07:00 118 H 22 101/43 98 12/07/16 06:00 112 H 22 76/33 94 L 12/07/16 05:00 109 H 14 86/44 96 12/07/16 04:00 97.4 F L 126 H 17 97 12/07/16 03:00 125 H 18 99 12/07/16 02:00 139 H 18 98 12/07/16 01:00 136 H 12 98 12/07/16 00:00 97.3 F L 137 H 18 94/48 97 12/06/16 23:29 124 H 17 98 12/06/16 23:00 131 H 19 81/48 97 12/06/16 22:00 129 H 15 97/46 99 12/06/16 21:00 120 H 17 82/38 99 12/06/16 20:00 97.1 F L 120 H 18 67/52 97 12/06/16 19:20 127 H 14 73/51 98 12/06/16 19:10 97.7 F 120 H 14 84/64 99 12/06/16 18:23 134 H 85/40 12/06/16 18:06 110 H 86/46 12/06/16 17:33 96.8 F L 117 H 18 81/46 96 12/06/16 17:07 96.8 F L 120 H 18 159/75 97 Intake and Output 12/07/16 12/07/16 12/07/16 06:59 14:59 22:59 Intake Total 0288.237 3825.977 Output Total 620 570 Balance 493.533 870.977 Intake: IV 800 380 Sodium Chloride 0.9% 1, 800 380 000 ml @ 100 mls/hr IV . Q10H [facility] Rx#:[id number] Intake, IV Titration 935.426 0179.977 Amount Dextrose 5% in Water 1, 150 000 ml @ 100 mls/hr IV . [id number] [facility] with Sodium Bicarb (1 Meq/ml) 150 ml Rx#:[id number] Heparin Sodium,Porcine/ 89.646 170.802 D5w Pmx 25,000 unit In Dextrose/Water 1 500ml. bag @ 9.8 UNITS/KG/HR 20. 07 mls/hr IV .Q24H [facility] Rx #:[id number] Magnesium Sulfate-D5w Pmx 200 1 gm In Dextrose/Water 1 100ml.bag @ 100 mls/hr IVPB Q1H [facility] Rx#: [id number] Norepinephrine 16 mg In 223.887 252.675 Sodium Chloride 0.9% 250 ml @ Titrate IV .Q0M [facility] Rx#:[id number] Piperacillin-Tazobactam 3 37.5 .375 gm In Dextrose/Water 1 50ml.bag @ 12.5 mls/hr IVPB Q12H [facility] Rx#: [id number] Vancomycin 1,750 mg In 250 Sodium Chloride 0.9% 250 ml @ 125 mls/hr IVPB ONCE ONE Rx#:[id number] Output: Urine 620 570 Other: Voiding Method Indwelling Catheter Indwelling Catheter Weight 104 kg ABP, PAP, CO, CI - Last 8 Hours Arterial Blood Pressure 103/43 Arterial Blood Pressure 77/32 Arterial Blood Pressure 83/38 Arterial Blood Pressure 79/37 Arterial Blood Pressure 75/33 Arterial Blood Pressure 76/38 Arterial Blood Pressure 75/39 Arterial Blood Pressure 76/39 GENERAL: Patient is well-developed and well-nourished. Patient is nontoxic and well- hydrated and is in no acute distress. ENT: Neck is soft and supple. No significant lymphadenopathy is noted. Oropharynx is clear. Moist mucous membranes. Neck has full range of motion without eliciting any pain. EYES: The sclera were anicteric and conjunctiva were pink and moist. Extraocular movements were intact and pupils were equal round and reactive to light. Eyelids were unremarkable. PULMONARY: Unlabored respirations. Good breath sounds bilaterally. No audible rales rhonchi or wheezing was noted. CARDIOVASCULAR: There is a regular rate and rhythm without any murmurs gallops or rubs. ABDOMEN: Soft and nontender with normal bowel sounds. No palpable organomegaly was noted. There is no palpable pulsatile mass. Patient has a large pannus and underneath the pannus is erythematous with some skin breakdown and very malodorous. There appears to be early cellulitis beneath the pannus Skin Skin is clear with no lesions or rashes and otherwise unremarkable. NEUROLOGIC: Patient is alert and oriented x3. Cranial nerves II through XII are grossly intact. Normal speech, volume and content. Symmetrical smile. MUSCULOSKELETAL: No lower extremity swelling or edema. No calf tenderness. LYMPHATICS: No significant lymphadenopathy is noted PSYCHIATRIC: Normal psychiatric evaluation. Limitations: no limitations Results - Laboratory Findings CBC and BMP: 12/07/16 05:30 12/07/16 05:30 ABG ABG pH 7.29 (7.35-7.45) L 12/07/16 02:17 ABG pCO2 33 mmHg (35-45) L 12/07/16 02:17 ABG pO2 116 mmHg (83-108) H 12/07/16 02:17 ABG O2 Saturation 98.1 % (94-97) H 12/07/16 02:17 PT/INR, D-dimer PT 13.5 sec (9.0-12.0) H 12/07/16 02:10 INR 1.4 (<1.1) 12/07/16 02:10 Abnormal lab findings: Abnormal Labs 12/06/16 12/06/16 12/07/16 18:57 22:20 02:10 WBC 17.9 H RBC 3.53 L MCV 116.1 H MCH 36.1 H RDW 15.8 H Plt Count 130 L Neutrophils # 15.9 H Lymphocytes # 0.7 L PT APTT ABG pH ABG pCO2 ABG pO2 ABG HCO3 ABG Total CO2 ABG O2 Saturation Potassium Chloride Carbon Dioxide BUN Creatinine Glucose POC Glucose (mg/dL) 73 L Phosphorus Magnesium Total Bilirubin AST Alkaline Phosphatase CK-MB (CK-2) 7.4 H* Troponin I 0.225 H* Total Protein Albumin 12/07/16 12/07/16 12/07/16 02:10 02:10 02:17 WBC RBC MCV MCH RDW Plt Count Neutrophils # Lymphocytes # PT 13.5 H APTT ABG pH 7.29 L ABG pCO2 33 L ABG pO2 116 H ABG HCO3 15 L ABG Total CO2 16 L ABG O2 Saturation 98.1 H Potassium 5.4 H Chloride 114 H Carbon Dioxide 15 L BUN 136 H* Creatinine 3.20 H Glucose 69 L POC Glucose (mg/dL) Phosphorus Magnesium Total Bilirubin 1.6 H AST 37 H Alkaline Phosphatase 176 H CK-MB (CK-2) Troponin I Total Protein 5.1 L Albumin 2.2 L 12/07/16 12/07/16 12/07/16 05:30 05:30 05:30 WBC 15.6 H RBC 3.37 L MCV 116.3 H MCH 36.2 H RDW 15.9 H Plt Count 135 L Neutrophils # 14.4 H Lymphocytes # 0.4 L PT APTT ABG pH ABG pCO2 ABG pO2 ABG HCO3 ABG Total CO2 ABG O2 Saturation Potassium 5.5 H Chloride 116 H Carbon Dioxide 14 L BUN 133 H* Creatinine 3.25 H Glucose POC Glucose (mg/dL) Phosphorus 6.2 H Magnesium 1.4 L Total Bilirubin AST Alkaline Phosphatase CK-MB (CK-2) 7.6 H* Troponin I 0.475 H* Total Protein Albumin 12/07/16 12:03 WBC RBC MCV MCH RDW Plt Count Neutrophils # Lymphocytes # PT APTT 129.8 H* ABG pH ABG pCO2 ABG pO2 ABG HCO3 ABG Total CO2 ABG O2 Saturation Potassium Chloride Carbon Dioxide BUN Creatinine Glucose POC Glucose (mg/dL) Phosphorus Magnesium Total Bilirubin AST Alkaline Phosphatase CK-MB (CK-2) Troponin I Total Protein Albumin - Diagnostic Findings Chest x-ray: image reviewed (Suggestive of mild congestive heart failure, however the quality is poor and the patient is rotated.) Assessment and Plan Plan: Impression: Acute sepsis secondary to urinary tract infection, however, the possibility of sepsis from abdominal wall cellulitis is not entirely ruled out. Hence the patient will be placed on broad-spectrum antibiotics including vancomycin and Zosyn and Levaquin, and we'll continue to follow closely. If the family wishes transferred to [facility], we will arrange for this to be done today. Discussed her condition with the admitting physician, and I will discuss it hopefully with the accepting physician after this dictation. Multiple comorbidities including acute renal failure most likely secondary to acute tubular necrosis and hypotension, history of underlying coronary artery disease, secondary pulmonary hypertension, hyperlipidemia, and history of degenerative joint disease and chronic back pain. Time with Patient: Greater than 30
[2016-12-07] MEDS ORDERED: SODIUM CHLORIDE 0.9% 500 ML IV ONE (16:04)
[2016-12-07] MEDS ORDERED: LEVOFLOXACIN 750MG-D5W PMX 750 MG in DEXTROSE/WATER 1 150ML.BAG IVPB SCH (18:00)
--- NOTE | 2016-12-07 18:21 | P.CONS ---
History of Present Illness - Reason for Consult Consult date: 12/07/16 - Chief Complaint Altered mental status - History of Present Illness 85-year-old female presents to the emergency center because of family noted she became lethargic and weak. She lives in the family home with her elderly . The family were concerned about her declining status because she normally was able to care for herself. She was brought to [facility]. There she had evidence of significant sepsis with leukocytosis and acidosis and hyperkalemia. There is also evidence of acute renal failure. If concerns to congestive heart failure with a markedly elevated BNP with no she also had acute renal failure. Because of her sepsis the infectious diseases consultation was requested. If this time the patient is arousable to stimuli. However she is non-conversational. And when she does speak does not make much sense. When her abdominal pannus was examined she did cry out in pain and repeated "Oh my stars" multiple times. Review of Systems ROS unobtainable: due to mental status Past Medical History Past Medical History: Coronary Artery Disease (CAD), Hyperlipidemia, Hypertension History of Any Multi-Drug Resistant Organisms: None Reported Past Surgical History: Unable to Obtain Past Psychological History: No Psychological Hx Reported Additional Psychological History / Comment(s): Lives in the family home with her elderly . Family members apparently do help out. 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 Smoking Status: Never smoker Past Alcohol Use History: None Reported Past Drug Use History: None Reported Medications and Allergies Home Medications and Allergies Comment(s): Current Medications Allopurinol (Zyloprim) 100 mg PO DAILY [facility] Last Admin: 12/07/16 09:09 Dose: 100 mg Aspirin (Aspirin) 81 mg PO HS [facility] Heparin Sodium (Porcine) (Heparin) 5,000 unit SQ Q12HR [facility] Hydromorphone HCl (Dilaudid) 0.5 mg IVP Q4HR PRN PRN Reason: Pain Last Admin: 12/07/16 17:07 Dose: 0.5 mg Norepinephrine Bitartrate 16 (mg/ Sodium Chloride) 266 mls @ 0 mls/hr IV .Q0M [facility]; Titrate PRN Reason: Protocol Last Admin: 12/07/16 13:18 Dose: 50 mcg/min, 49.87 mls/hr Levofloxacin 500 mg/ IV (Solution) 100 mls @ 100 mls/hr IVPB Q48H [facility] Piperacillin/Tazobactam/ (Dextrose 3.375 gm/ IV Solution) 50 mls @ 12.5 mls/hr IVPB Q12H [facility] Last Admin: 12/07/16 11:48 Dose: 12.5 mls/hr Vasopressin 20 unit/ Sodium (Chloride) 100 mls @ 9 mls/hr IV .Q11H7M [facility] PRN Reason: 0.03 UNITS/MIN Last Admin: 12/07/16 10:15 Dose: 9 mls/hr Sodium Bicarbonate 150 ml/ (Dextrose/Water) 1,150 mls @ 100 mls/hr IV .[id number] [facility] Last Admin: 12/07/16 14:18 Dose: 100 mls/hr Miscellaneous Information (Magnesium Per Protocol) 1 each MISCELLANE DAILY PRN ; Protocol PRN Reason: Per Protocol Naloxone HCl (Narcan) 0.2 mg IV Q2M PRN PRN Reason: Opioid Reversal Pantoprazole Sodium (Protonix) 40 mg IV DAILY [facility] Last Admin: 12/07/16 09:09 Dose: 40 mg Home Medications Medication Instructions Recorded Confirmed Type Allopurinol [Zyloprim] 100 mg PO DAILY 12/06/16 12/06/16 History Aspirin EC [Ecotrin Low Dose] 81 mg PO HS 12/06/16 12/06/16 History Atorvastatin [Lipitor] 5 mg PO HS 12/06/16 12/06/16 History Lisinopril [Zestril] 5 mg PO DAILY 12/06/16 12/06/16 History Multivitamins, Thera [Multivitamin] 1 tab PO DAILY 12/06/16 12/06/16 History Sildenafil [Revatio] 20 mg PO BID 12/06/16 12/06/16 History Spironolactone [Aldactone] 37.5 mg PO DAILY 12/06/16 12/06/16 History Torsemide [Demadex] 40 mg PO DAILY 12/06/16 12/06/16 History fentaNYL 25MCG/HR PATCH [Duragesic 1 patch TRANSDERM Q72H 12/06/16 12/06/16 History 25MCG/HR] oxyCODONE-APAP 10-325MG [Percocet 1 tab PO TID PRN 12/06/16 12/06/16 History 10-325 mg] Allergies Allergy/AdvReac Type Severity Reaction Status Date / Time No Known Allergies Allergy Verified 12/06/16 15:22 Physical Exam Vitals: Vital Signs Temp Pulse Resp BP Pulse Ox 12/07/16 17:00 163 H 34 H 98 12/07/16 16:00 124 H 17 98 12/07/16 15:00 94 22 98 12/07/16 14:00 90 12 97 12/07/16 13:00 102 H 15 98 12/07/16 12:00 98.1 F 91 22 98 12/07/16 11:00 95 24 97 12/07/16 10:00 104 H 31 H 100/48 97 12/07/16 09:00 109 H 15 100/51 96 12/07/16 08:00 97.5 F L 123 H 24 94/51 98 12/07/16 07:00 118 H 22 101/43 98 12/07/16 06:00 112 H 22 76/33 94 L 12/07/16 05:00 109 H 14 86/44 96 12/07/16 04:00 97.4 F L 126 H 17 97 12/07/16 03:00 125 H 18 99 12/07/16 02:00 139 H 18 98 12/07/16 01:00 136 H 12 98 12/07/16 00:00 97.3 F L 137 H 18 94/48 97 12/06/16 23:29 124 H 17 98 12/06/16 23:00 131 H 19 81/48 97 12/06/16 22:00 129 H 15 97/46 99 12/06/16 21:00 120 H 17 82/38 99 12/06/16 20:00 97.1 F L 120 H 18 67/52 97 12/06/16 19:20 127 H 14 73/51 98 12/06/16 19:10 97.7 F 120 H 14 84/64 99 12/06/16 18:23 134 H 85/40 Intake and Output 12/07/16 12/07/16 12/07/16 06:59 14:59 22:59 Intake Total 6529.130 9858.977 522.5 Output Total 620 570 450 Balance 493.533 870.977 72.5 Intake: IV 800 380 60 Sodium Chloride 0.9% 1, 800 380 60 000 ml @ 100 mls/hr IV . Q10H [facility] Rx#:[id number] Intake, IV Titration 398.550 8332.977 462.5 Amount Dextrose 5% in Water 1, 150 450 000 ml @ 100 mls/hr IV . [id number] ZAIRE with Sodium Bicarb (1 Meq/ml) 150 ml Rx#:[id number] Heparin Sodium,Porcine/ 89.646 170.802 D5w Pmx 25,000 unit In Dextrose/Water 1 500ml. bag @ 9.8 UNITS/KG/HR 20. 07 mls/hr IV .Q24H [facility] Rx #:[id number] Magnesium Sulfate-D5w Pmx 200 1 gm In Dextrose/Water 1 100ml.bag @ 100 mls/hr IVPB Q1H [facility] Rx#: [id number] Norepinephrine 16 mg In 223.887 252.675 Sodium Chloride 0.9% 250 ml @ Titrate IV .Q0M [facility] Rx#:[id number] Piperacillin-Tazobactam 3 37.5 12.5 .375 gm In Dextrose/Water 1 50ml.bag @ 12.5 mls/hr IVPB Q12H [facility] Rx#: [id number] Vancomycin 1,750 mg In 250 Sodium Chloride 0.9% 250 ml @ 125 mls/hr IVPB ONCE ONE Rx#:[id number] Output: Urine 620 570 450 Other: Voiding Method Indwelling Catheter Indwelling Catheter Indwelling Catheter Weight 104 kg ABP, PAP, CO, CI - Last 8 Hours Arterial Blood Pressure 116/42 Arterial Blood Pressure 94/46 Arterial Blood Pressure 103/43 Arterial Blood Pressure 77/32 Arterial Blood Pressure 83/38 Arterial Blood Pressure 79/37 Arterial Blood Pressure 75/33 Obese 85-year-old woman in no acute distress but does cry out in pain with her abdominal pannus is manipulated. HEENT: Anicteric conjunctiva are pink and moist nasal mucosa grossly intact without significant lesions, there is no thrush. Oral cavity is dry Neck: The neck is supple without significant lymphadenopathy or thyromegaly. Lungs: Symmetrical air entry is noted. Basilar crackles are heard. Expiratory wheezes are scattered. No drake bronchial sounds are noted. Heart: Irregular with an audible S1 and S2 soft S3 soft S4 no click or rub 2/6 systolic murmur is noted left sternal border Abdomen: Obese Positive bowel sounds soft and nontender without palpable masses or organomegaly. There was no guarding or rebound. There is a large abdominal pannus. Witnesses lifted there is evidence of the significant candidal infection, since treatment with some topical powder as well as intra-dry. Extremities: The upper extremities have excellent pulses they are symmetric, no significant petechiae or telangiectasia. No splinter hemorrhages were noted. The lower extremities symmetrical lower extremity edema The peripheral pulses were 2+ and symmetric. Neuro: Arousable but not oriented Results CBC & Chem 7: 12/07/16 05:30 12/07/16 05:30 Labs: Abnormal Lab Results - Last 24 Hours (Table) 12/06/16 12/06/16 12/07/16 Range/Units 18:57 22:20 02:10 WBC 17.9 H (3.8-10.6) k/uL RBC 3.53 L (3.80-5.40) m/uL MCV 116.1 H (80.0-100.0) fL MCH 36.1 H (25.0-35.0) pg RDW 15.8 H (11.5-15.5) % Plt Count 130 L (150-450) k/uL Neutrophils # 15.9 H (1.3-7.7) k/uL Lymphocytes # 0.7 L (1.0-4.8) k/uL PT (9.0-12.0) sec APTT (22.0-30.0) sec ABG pH (7.35-7.45) ABG pCO2 (35-45) mmHg ABG pO2 (83-108) mmHg ABG HCO3 (21-25) mmol/L ABG Total CO2 (19-24) mmol/L ABG O2 Saturation (94-97) % Potassium (3.5-5.1) mmol/L Chloride (98-107) mmol/L Carbon Dioxide (22-30) mmol/L BUN (7-17) mg/dL Creatinine (0.52-1.04) mg/dL Glucose (74-99) mg/dL POC Glucose (mg/dL) 73 L (75-99) mg/dL Phosphorus (2.5-4.5) mg/dL Magnesium (1.6-2.3) mg/dL Total Bilirubin (0.2-1.3) mg/dL AST (14-36) U/L Alkaline Phosphatase (38-126) U/L CK-MB (CK-2) 7.4 H* (0.0-2.4) ng/mL Troponin I 0.225 H* (0.000-0.034) ng/mL Total Protein (6.3-8.2) g/dL Albumin (3.5-5.0) g/dL 12/07/16 12/07/16 12/07/16 Range/Units 02:10 02:10 02:17 WBC (3.8-10.6) k/uL RBC (3.80-5.40) m/uL MCV (80.0-100.0) fL MCH (25.0-35.0) pg RDW (11.5-15.5) % Plt Count (150-450) k/uL Neutrophils # (1.3-7.7) k/uL Lymphocytes # (1.0-4.8) k/uL PT 13.5 H (9.0-12.0) sec APTT (22.0-30.0) sec ABG pH 7.29 L (7.35-7.45) ABG pCO2 33 L (35-45) mmHg ABG pO2 116 H (83-108) mmHg ABG HCO3 15 L (21-25) mmol/L ABG Total CO2 16 L (19-24) mmol/L ABG O2 Saturation 98.1 H (94-97) % Potassium 5.4 H (3.5-5.1) mmol/L Chloride 114 H (98-107) mmol/L Carbon Dioxide 15 L (22-30) mmol/L BUN 136 H* (7-17) mg/dL Creatinine 3.20 H (0.52-1.04) mg/dL Glucose 69 L (74-99) mg/dL POC Glucose (mg/dL) (75-99) mg/dL Phosphorus (2.5-4.5) mg/dL Magnesium (1.6-2.3) mg/dL Total Bilirubin 1.6 H (0.2-1.3) mg/dL AST 37 H (14-36) U/L Alkaline Phosphatase 176 H (38-126) U/L CK-MB (CK-2) (0.0-2.4) ng/mL Troponin I (0.000-0.034) ng/mL Total Protein 5.1 L (6.3-8.2) g/dL Albumin 2.2 L (3.5-5.0) g/dL 12/07/16 12/07/16 12/07/16 Range/Units 05:30 05:30 05:30 WBC 15.6 H (3.8-10.6) k/uL RBC 3.37 L (3.80-5.40) m/uL MCV 116.3 H (80.0-100.0) fL MCH 36.2 H (25.0-35.0) pg RDW 15.9 H (11.5-15.5) % Plt Count 135 L (150-450) k/uL Neutrophils # 14.4 H (1.3-7.7) k/uL Lymphocytes # 0.4 L (1.0-4.8) k/uL PT (9.0-12.0) sec APTT (22.0-30.0) sec ABG pH (7.35-7.45) ABG pCO2 (35-45) mmHg ABG pO2 (83-108) mmHg ABG HCO3 (21-25) mmol/L ABG Total CO2 (19-24) mmol/L ABG O2 Saturation (94-97) % Potassium 5.5 H (3.5-5.1) mmol/L Chloride 116 H (98-107) mmol/L Carbon Dioxide 14 L (22-30) mmol/L BUN 133 H* (7-17) mg/dL Creatinine 3.25 H (0.52-1.04) mg/dL Glucose (74-99) mg/dL POC Glucose (mg/dL) (75-99) mg/dL Phosphorus 6.2 H (2.5-4.5) mg/dL Magnesium 1.4 L (1.6-2.3) mg/dL Total Bilirubin (0.2-1.3) mg/dL AST (14-36) U/L Alkaline Phosphatase (38-126) U/L CK-MB (CK-2) 7.6 H* (0.0-2.4) ng/mL Troponin I 0.475 H* (0.000-0.034) ng/mL Total Protein (6.3-8.2) g/dL Albumin (3.5-5.0) g/dL 12/07/16 Range/Units 12:03 WBC (3.8-10.6) k/uL RBC (3.80-5.40) m/uL MCV (80.0-100.0) fL MCH (25.0-35.0) pg RDW (11.5-15.5) % Plt Count (150-450) k/uL Neutrophils # (1.3-7.7) k/uL Lymphocytes # (1.0-4.8) k/uL PT (9.0-12.0) sec APTT 129.8 H* (22.0-30.0) sec ABG pH (7.35-7.45) ABG pCO2 (35-45) mmHg ABG pO2 (83-108) mmHg ABG HCO3 (21-25) mmol/L ABG Total CO2 (19-24) mmol/L ABG O2 Saturation (94-97) % Potassium (3.5-5.1) mmol/L Chloride (98-107) mmol/L Carbon Dioxide (22-30) mmol/L BUN (7-17) mg/dL Creatinine (0.52-1.04) mg/dL Glucose (74-99) mg/dL POC Glucose (mg/dL) (75-99) mg/dL Phosphorus (2.5-4.5) mg/dL Magnesium (1.6-2.3) mg/dL Total Bilirubin (0.2-1.3) mg/dL AST (14-36) U/L Alkaline Phosphatase (38-126) U/L CK-MB (CK-2) (0.0-2.4) ng/mL Troponin I (0.000-0.034) ng/mL Total Protein (6.3-8.2) g/dL Albumin (3.5-5.0) g/dL Laboratory Results WBC 15.6 k/uL (3.8-10.6) H 12/07/16 05:30 RBC 3.37 m/uL (3.80-5.40) L 12/07/16 05:30 Hgb 12.2 gm/dL (11.4-16.0) 12/07/16 05:30 Hct 39.2 % (34.0-46.0) 12/07/16 05:30 MCV 116.3 fL (80.0-100.0) H 12/07/16 05:30 MCH 36.2 pg (25.0-35.0) H 12/07/16 05:30 MCHC 31.1 g/dL (31.0-37.0) 12/07/16 05:30 RDW 15.9 % (11.5-15.5) H 12/07/16 05:30 Plt Count 135 k/uL (150-450) L 12/07/16 05:30 Neutrophils % 93 % 12/07/16 05:30 Lymphocytes % 3 % 12/07/16 05:30 Monocytes % 4 % 12/07/16 05:30 Eosinophils % 0 % 12/07/16 05:30 Basophils % 0 % 12/07/16 05:30 Neutrophils # 14.4 k/uL (1.3-7.7) H 12/07/16 05:30 Lymphocytes # 0.4 k/uL (1.0-4.8) L 12/07/16 05:30 Monocytes # 0.6 k/uL (0-1.0) 12/07/16 05:30 Eosinophils # 0.0 k/uL (0-0.7) 12/07/16 05:30 Basophils # 0.0 k/uL (0-0.2) 12/07/16 05:30 Manual Slide Review Performed 12/07/16 02:10 Polychromasia Present 12/07/16 02:10 Hypochromasia Slight 12/07/16 05:30 Poikilocytosis (manual Present 12/07/16 02:10 Anisocytosis (manual) Present 12/07/16 02:10 Macrocytosis Marked 12/07/16 05:30 PT 13.5 sec (9.0-12.0) H 12/07/16 02:10 INR 1.4 (<1.1) 12/07/16 02:10 APTT 129.8 sec (22.0-30.0) H* 12/07/16 12:03 Sample Site A-LINE 12/07/16 02:17 ABG pH 7.29 (7.35-7.45) L 12/07/16 02:17 ABG pCO2 33 mmHg (35-45) L 12/07/16 02:17 ABG pO2 116 mmHg (83-108) H 12/07/16 02:17 ABG HCO3 15 mmol/L (21-25) L 12/07/16 02:17 ABG Total CO2 16 mmol/L (19-24) L 12/07/16 02:17 ABG O2 Saturation 98.1 % (94-97) H 12/07/16 02:17 ABG Base Excess -10.0 mmol/L 12/07/16 02:17 ABG Lactic Acid 1.1 mmol/L (0.5-1.6) 12/07/16 02:10 FiO2 40 % 12/07/16 02:17 Sodium 143 mmol/L (137-145) 12/07/16 05:30 Potassium 5.5 mmol/L (3.5-5.1) H 12/07/16 05:30 Chloride 116 mmol/L (98-107) H 12/07/16 05:30 Carbon Dioxide 14 mmol/L (22-30) L 12/07/16 05:30 Anion Gap 13 mmol/L 12/07/16 05:30 BUN 133 mg/dL (7-17) H* 12/07/16 05:30 Creatinine 3.25 mg/dL (0.52-1.04) H 12/07/16 05:30 Est GFR (MDRD) Af Amer 16 (>60 ml/min/1.73 sqM) 12/07/16 05:30 Est GFR (MDRD) Non-Af 14 (>60 ml/min/1.73 sqM) 12/07/16 05:30 Glucose 84 mg/dL (74-99) 12/07/16 05:30 POC Glucose (mg/dL) 73 mg/dL (75-99) L 12/06/16 18:57 POC Glu [employer] ID Lisa Valdes 12/06/16 18:57 Plasma Lactic Acid Tanvir 1.1 mmol/L (0.7-2.0) 12/06/16 21:00 Calcium 9.6 mg/dL (8.4-10.2) 12/07/16 05:30 Phosphorus 6.2 mg/dL (2.5-4.5) H 12/07/16 05:30 Magnesium 1.4 mg/dL (1.6-2.3) L 12/07/16 05:30 Total Bilirubin 1.6 mg/dL (0.2-1.3) H 12/07/16 02:10 AST 37 U/L (14-36) H 12/07/16 02:10 ALT 42 U/L (9-52) 12/07/16 02:10 Alkaline Phosphatase 176 U/L (38-126) H 12/07/16 02:10 Total Creatine Kinase 64 U/L (30-135) 12/07/16 05:30 CK-MB (CK-2) 7.6 ng/mL (0.0-2.4) H* 12/07/16 05:30 CK-MB (CK-2) Rel Index 11.9 12/07/16 05:30 Troponin I 0.475 ng/mL (0.000-0.034) H* 12/07/16 05:30 NT-Pro-B Natriuret Pep 45253 pg/mL 12/07/16 02:10 Total Protein 5.1 g/dL (6.3-8.2) L 12/07/16 02:10 Albumin 2.2 g/dL (3.5-5.0) L 12/07/16 02:10 Cortisol 33 ug/dL 12/07/16 02:10 Urine Color Light Red 12/06/16 16:00 Urine Appearance Turbid (Clear) H 12/06/16 16:00 Urine pH 5.5 (5.0-8.0) 12/06/16 16:00 Ur Specific [place] 1.017 (1.001-1.035) 12/06/16 16:00 Urine Protein 2+ (Negative) H 12/06/16 16:00 Urine Glucose (UA) Negative (Negative) 12/06/16 16:00 Urine Ketones Negative (Negative) 12/06/16 16:00 Urine Blood Small (Negative) H 12/06/16 16:00 Urine Nitrate Negative (Negative) 12/06/16 16:00 Urine Bilirubin Negative (Negative) 12/06/16 16:00 Urine Urobilinogen <2.0 mg/dL (<2.0) 12/06/16 16:00 Ur Leukocyte Esterase Large (Negative) H 12/06/16 16:00 Urine WBC >182 /hpf (0-5) H 12/06/16 16:00 Urine WBC Clumps Many /hpf (None) H 12/06/16 16:00 Urine Bacteria Many /hpf (None) H 12/06/16 16:00 Blood Type A Positive 12/06/16 15:30 Blood Type Confirm A Positive 12/06/16 21:00 Blood Type Recheck CABO Indicated 12/06/16 15:30 Antibody Screen NEGATIVE 12/06/16 15:30 Spec Expiration Date 12/09/2016 - 232912/06/16 15:30 Microbiology 12/06/16 15:30 Blood Blood Culture - Preliminary No Growth after 24 hours 12/06/16 15:30 Abdomen Gram Stain - Preliminary 12/06/16 15:30 Abdomen Wound Culture - Preliminary Gram Neg Bacilli 12/06/16 16:00 Urine,Catheterized Urine Culture - Preliminary Assessment and Plan (1) Gram negative sepsis Narrative/Plan: 85-year-old presents to Hospital with sudden change of her mental status. At presentation there was evidence of sepsis with shock requiring transfer to the intensive care unit. There she received fluid resuscitation and vasopressor therapy. Still requiring vasopressor therapy this point in time with the amount of therapy is reduced. There is evidence of gram-negative sepsis from her urinary system and possibly also complicated by the significant irritation to her skin of her abdominal fold. Local care is given to the fold. Chest x-ray is abnormal likely congestive heart failure pneumonia not completely ruled out. Consequently treatment of gram-negative sepsis likely from the urinary system positive from the skin will be treated with a piperacillin tazobactam and Levaquin for now. Final cultures are pending. There is no evidence of any gram -positive sepsis this time the vancomycin may be discontinued especially with her acute renal failure. Local wound care with powder and intra-dry was applied to the abdominal fold. The patient has trended to be hypothermic breath with it hyperthermic at this time some of a poor prognostic factor was sepsis although she is showing some improvement. Leukocytosis is trending from 17.9-15.6. But does remain acidotic by the last ABG. Blood cultures in progress. Antibiotic therapy will be adjusted as possible. Likely will occur the next Hospital where she likely be transferred in the near future. Status: Acute (2) UTI (urinary tract infection) Status: Acute (3) Intertrigo Status: Acute (4) Acute renal failure Status: Acute
[2016-12-07] MEDS ORDERED: HEPARIN SODIUM,PORCINE 5,000 UNIT/ML 1 ML VIAL SQ SCH (21:00)
[2016-12-07] MEDS ORDERED: LEVOFLOXACIN 500MG-D5W PMX 500 MG in DEXTROSE/WATER 1 100ML.BAG IVPB SCH (21:00)
[2016-12-07] MEDS ORDERED: ASPIRIN 81 MG CHEW PO SCH (21:00)
[2016-12-07 21:03] VITALS: BP 110/54; PULSE 124; RESP 16; TEMP 99.4
--- NOTE | 2017-01-18 16:01 | P.DS ---
Providers Date of admission: 12/06/16 17:06 Expected date of discharge: 12/07/16 Attending physician: Fabian Epps Consults: 12/06/16 17:11 Consult Physician Urgent Consulting Provider: Romel Doshi Consult Reason/Comments: Sepsis Do you want consulting provider notified?: Yes 12/06/16 17:24 Consult Physician Urgent Consulting Provider: Lauren Dorantes Consult Reason/Comments: Acute renal failure Do you want consulting provider notified?: Yes 12/07/16 10:38 Consult Physician Routine Consulting Provider: Kp Montero Consult Reason/Comments: sepsis Do you want consulting provider notified?: Yes 12/07/16 12:49 Consult Physician Urgent Consulting Provider: Wolfgang Klein Consult Reason/Comments: elevated troponin Do you want consulting provider notified?: Yes Primary care physician: Dilma Heredia Hospital Course: Discharge diagnosis 1. Severe sepsis and septic shock secondary to UTI as well as possible abdominal cellulitis 2. Urinary tract infection with sepsis 3. Abdominal folds dermatophytes with superimposed bacterial cellulitis 4. Severe pulmonary hypertension and cor pulmonale: Echocardiogram done showing preserved ejection fraction of 55-60% 5. Underlying essential hypertension 6. Chronic arthritis pain/degenerative joint disease 7. Troponin elevation: With no acute ischemic changes on 12-lead EKG. Most likely nonischemic troponin leak secondary to sepsis. Cardiology will be consulted 8. Acute kidney injury related to hypotension Hospital course This is a 85-year-old female with past medical history noted below significant for severe pulmonary hypertension/cor pulmonale who presented to the emergency room brought in by her family with a chief complaint of generalized weakness and not feeling well. Apparently patient has been doing fairly well up until the last few days when her family members noted worsening redness in between her abdominal folds. Patient is obese that she is usually functional. She is able to get up and take care of her activities of daily living. Yesterday, patient was noted to be more lethargic and tired. She was brought into the emergency room and was noted to be severely septic with hypotension. Patient was treated aggressively with IV fluid hydration, vasopressors, and broad spectrum antibiotic. She was admitted to the intensive care unit. She is currently on 2 different pressors. She was seen and evaluated by the occ therapist earlier. Patient also seen evaluated by infectious disease. Patient was transferred to [facility] her weapons and tactics instructor is from there. Patient and family were requesting to transfer. Please note that I am only dictating this report for Dr. Epps. I did not see or examine this patient. Patient Condition at Discharge: Stable Plan - Discharge Summary Discharge Medication List Allopurinol [Zyloprim] 100 mg PO DAILY 12/06/16 [History] Aspirin EC [Ecotrin Low Dose] 81 mg PO HS 12/06/16 [History] Atorvastatin [Lipitor] 5 mg PO HS 12/06/16 [History] Lisinopril [Zestril] 5 mg PO DAILY 12/06/16 [History] Multivitamins, Thera [Multivitamin] 1 tab PO DAILY 12/06/16 [History] Sildenafil [Revatio] 20 mg PO BID 12/06/16 [History] Spironolactone [Aldactone] 37.5 mg PO DAILY 12/06/16 [History] Torsemide [Demadex] 40 mg PO DAILY 12/06/16 [History] fentaNYL 25MCG/HR PATCH [Duragesic 25MCG/HR] 1 patch TRANSDERM Q72H 12/06/16 [ History] oxyCODONE-APAP 10-325MG [Percocet 10-325 mg] 1 tab PO TID PRN 12/06/16 [History] Follow up Appointment(s)/Referral(s): Dilma Heredia MD [Primary Care Provider] - 1-2 days Discharge Disposition: TRANSFER TO SHORT TERM HOSP
== END 2016-12-07 21:12 | disposition short-term general hospital (02) | DRG 871 ==
LOC: EC 15:12 → 6ICU 17:06
PROVIDERS: ADMIT Internal Medicine; ATTEND Internal Medicine
PROC: 06HN33Z Insertion of Infusion Device into Left Femoral Vein, Percutaneous Approach (ICD-10-PCS; principal; 2016-12-06)
DX: A41.50 Gram-negative sepsis, unspecified (principal); R65.21 Severe sepsis with septic shock; N17.0 Acute kidney failure with tubular necrosis; I27.2 Other secondary pulmonary hypertension; Z68.41 Body mass index [BMI] 40.0-44.9, adult; I11.0 Hypertensive heart disease with heart failure; I50.9 Heart failure, unspecified; E87.2 Acidosis; L03.311 Cellulitis of abdominal wall; Z66 Do not resuscitate; N39.0 Urinary tract infection, site not specified; I27.81 Cor pulmonale (chronic); E87.5 Hyperkalemia; I25.10 Atherosclerotic heart disease of native coronary artery without angina pectoris; E78.5 Hyperlipidemia, unspecified; M19.90 Unspecified osteoarthritis, unspecified site; E66.9 Obesity, unspecified; M54.9 Dorsalgia, unspecified; E87.8 Other disorders of electrolyte and fluid balance, not elsewhere classified; G89.29 Other chronic pain; L30.4 Erythema intertrigo; Z79.82 Long term (current) use of aspirin; Z79.899 Other long term (current) drug therapy; W19.XXXA Unspecified fall, initial encounter
CPT/HCPCS: 36415; 36556; 36620; 51702; 51798; 71010; 71020; 80048; 80053; 81001; 82533; 82550; 82553; 82805; 83605; 83735; 83880; 84100; 84484; 85025; 85610; 85730; 86850; 86900; 86901; 87040; 87070; 87077; 87086; 87186; 87205; 93005; 93306; 96361; 96365; 96367; 96375; 99291